=== PATIENT | female | born 1990 | race Caucasian/White ===

== ENCOUNTER 2019-04-24 19:39 | Emergency (ER) | payer OTHER ==
[~2019-04-24] VITALS: Ht 157.5 cm; Wt 67.7 kg
[~2019-04-24 19:39] MED LIST: ACET500C5 PO; FERR134T PO; FOLI0.4T2 PO; PREN-19 PO
[2019-04-24 19:44] VITALS: Ht 157.5 cm; Wt 67.7 kg
[2019-04-24 20:36] VITALS: BP 118/71; PULSE 98; RESP 20
== END 2019-04-24 20:59 | disposition home or self-care (01) ==
LOC: FTE 19:39
DX: Z34.93 Encounter for supervision of normal pregnancy, unspecified, third trimester (principal); Z3A.39 39 weeks gestation of pregnancy
CPT/HCPCS: 99282

== ENCOUNTER 2019-04-24 20:53 | Outpatient (CLI) | payer OTHER ==
[~2019-04-24] VITALS: Ht 157.5 cm; Wt 67.6 kg
[2019-04-24 22:06] VITALS: BP 123/73; PULSE 89; RESP 15
== END 2019-04-25 02:00 | disposition home or self-care (01) ==
LOC: OBT 20:53 → L-D 20:54 → OBT 04-25 02:00
PROVIDERS: ATTEND Specialist
DX: O9A.213 Injury, poisoning and certain other consequences of external causes complicating pregnancy, third trimester (principal); Z3A.39 39 weeks gestation of pregnancy
CPT/HCPCS: 76818; Z7500; G0463

== ENCOUNTER 2019-04-26 10:22 | Inpatient (IN) | payer OTHER ==
[~2019-04-26] VITALS: Ht 157.5 cm; Wt 66.7 kg
[~2019-04-26 10:22] MED LIST changes: -ACET500C5 PO
[2019-04-26 10:43] VITALS: BP 117/70; PULSE 73; RESP 18; Ht 157.5 cm; Wt 66.7 kg
[2019-04-26] MEDS ORDERED: LIDOCAINE 1% (MPF) 30 ML INJ INJ PRN (11:30)
[2019-04-26] MEDS ORDERED: IBUPROFEN 600 MG TAB PO PRN (11:30)
[2019-04-26] MEDS ORDERED: METHYLERGONOVINE 0.2 MG INJ IM PRN (11:30)
[2019-04-26] MEDS ORDERED: OXYTOCIN 30 UNITS/LR 500 ML IV PRN (11:30)
[2019-04-26] MEDS ORDERED: CARBOPROST 250 MCG INJ IM PRN (11:30)
[2019-04-26] MEDS ORDERED: MISOPROSTOL 200 MCG TAB PR PRN (11:30)
[2019-04-26] MEDS ORDERED: OXYTOCIN 30 UNITS/LR 500 ML IV SCH ×3 (11:30)
[2019-04-26] MEDS ORDERED: OXYCODONE/ASPIRIN (4.88/325) TAB PO PRN (11:30)
[2019-04-26] MEDS: LACTATED RINGER'S 1,000 ML IV SCH ×2 (11:33→19:32)
[2019-04-26] MEDS ORDERED: BUTORPHANOL 2 MG INJ IV PRN ×2 (22:00)
[2019-04-27] MEDS ORDERED: NALOXONE (0.4 MG/ML) INJ IV PRN
[2019-04-27] MEDS ORDERED: TRIMETHOBENZAMIDE 100 MG/ML VIAL IM PRN
[2019-04-27] MEDS ORDERED: ONDANSETRON 4 MG INJ IV PRN
[2019-04-27] MEDS ORDERED: DIPHENHYDRAMINE 50 MG INJ IV PRN
[2019-04-27] MEDS ORDERED: FENTAnyl 2MCG/ML-ROPIV 0.2% 100 ML ONE (00:11)
[2019-04-27] MEDS: LACTATED RINGER'S 1,000 ML IV SCH ×4 (00:43→22:05)
[2019-04-27] MEDS: FENTAnyl 2MCG/ML-ROPIV 0.2% 100 ML BAG EPI SCH ×2 (09:14→17:45)
[2019-04-27] MEDS: GENTAMICIN 90 MG in SOD CHLORIDE 0.9% 100 ML IV SCH ×2 (10:51→18:03)
[2019-04-27] MEDS: AMPICILLIN 1 GM/NS (PMX) 50 ML IVPB SCH ×4 (12:14→21:17)
[2019-04-28] MEDS ORDERED: DIBUCAINE 1% 30 GM OINT TOP PRN (00:30)
[2019-04-28] MEDS ORDERED: MISOPROSTOL 200 MCG TAB PR PRN (00:30)
[2019-04-28] MEDS ORDERED: MAGNESIUM HYDROXIDE 30ML CUP PO PRN (00:30)
[2019-04-28] MEDS ORDERED: LANOLIN HPA 1 PKT TOP PRN (00:30)
[2019-04-28] MEDS ORDERED: ONDANSETRON 4 MG INJ IV PRN (00:30)
[2019-04-28] MEDS ORDERED: OXYTOCIN 30 UNITS/LR 500 ML IV PRN (00:30)
[2019-04-28] MEDS ORDERED: NA PHOSPHATE/BIPHOS 133 ML ENEMA PR PRN (00:30)
[2019-04-28] MEDS ORDERED: CARBOPROST 250 MCG INJ IM PRN (00:30)
[2019-04-28] MEDS ORDERED: BENZOCAINE 20% 56 ML SPRAY TOP PRN (00:30)
[2019-04-28] MEDS ORDERED: DIPHENHYDRAMINE 50 MG INJ IV PRN (00:30)
[2019-04-28] MEDS ORDERED: SENNA/DOCUSATE NA (8.6MG/50MG) TAB PO PRN (00:30)
[2019-04-28] MEDS ORDERED: WITCH HAZEL/GLYCERIN PAD PR PRN (00:30)
[2019-04-28] MEDS ORDERED: HYDROCODONE/APAP (5/325) TAB PO PRN ×2 (00:30)
[2019-04-28] MEDS ORDERED: ONDANSETRON 4 MG TAB PO PRN (00:30)
[2019-04-28] MEDS ORDERED: DIPHENHYDRAMINE 25 MG CAP PO PRN (00:30)
[2019-04-28 02:10] VITALS: BP 112/58; PULSE 67; RESP 18
[2019-04-28] MEDS: AMPICILLIN 1 GM/NS (PMX) 50 ML IVPB SCH ×6 (03:16→22:54)
[2019-04-28] MEDS: GENTAMICIN 90 MG in SOD CHLORIDE 0.9% 100 ML IV SCH ×3 (04:33→17:56)
[2019-04-28 05:56] VITALS: BP 108/57; PULSE 68; RESP 19
[2019-04-28] MEDS: IBUPROFEN 600 MG TAB PO SCH ×3 (06:13→17:56)
[2019-04-28] MEDS: LACTATED RINGER'S 1,000 ML IV* SCH ×3 (06:45→16:06)
[2019-04-28 08:30] VITALS: BP 89/57; RESP 18
[2019-04-28] MEDS: SENNA/DOCUSATE NA (8.6MG/50MG) TAB PO SCH ×2 (09:07→21:11)
[2019-04-28] MEDS: LACTATED RINGER'S 1,000 ML IV SCH ×2 (12:18→22:57)
[2019-04-28 18:01] VITALS: BP 98/56; PULSE 77; RESP 18
[2019-04-28 19:40] VITALS: BP 116/72; PULSE 83; RESP 20
[2019-04-29] VITALS: BP 110/72; PULSE 76; RESP 18
[2019-04-29] MEDS: LACTATED RINGER'S 1,000 ML IV* SCH ×2 (00:06→08:06)
[2019-04-29] MEDS: IBUPROFEN 600 MG TAB PO SCH ×5 (00:27→23:35)
[2019-04-29] MEDS: GENTAMICIN 90 MG in SOD CHLORIDE 0.9% 100 ML IV SCH ×2 (01:52→10:52)
[2019-04-29] MEDS: AMPICILLIN 1 GM/NS (PMX) 50 ML IVPB SCH ×4 (02:59→13:09)
[2019-04-29] MEDS: LACTATED RINGER'S 1,000 ML IV SCH (03:09)
[2019-04-29 04:10] VITALS: BP 100/52; PULSE 65; RESP 18
[2019-04-29 08:00] VITALS: BP 108/59; PULSE 68; RESP 16
[2019-04-29] MEDS: SENNA/DOCUSATE NA (8.6MG/50MG) TAB PO SCH ×2 (10:03→22:21)
[2019-04-29 15:48] VITALS: BP_SYST 104; BP_SYST 127; BP_DIAS 55; BP_DIAS 73; PULSE 70; PULSE 84; RESP 18
[2019-04-29 20:00] VITALS: BP 105/59; PULSE 87; RESP 18
[2019-04-30 03:30] VITALS: BP 95/54; PULSE 80; RESP 18
[2019-04-30] MEDS: IBUPROFEN 600 MG TAB PO SCH ×2 (05:45→12:20)
[2019-04-30 08:00] VITALS: BP 108/53; PULSE 73; RESP 18
[2019-04-30] MEDS ORDERED: DIPHTH/TET/ACEL PERTUSS (ADULT) 0.5 ML VIAL IM* ONE (09:00)
[2019-04-30] MEDS ORDERED: VARICELLA VACCINE LIVE/PF 1,350 UNIT/0.5 ML ML SC* ONE (09:00)
[2019-04-30] MEDS ORDERED: MEASLES,MUMPS,RUBELLA VACCINE INJ SC* ONE (09:00)
[2019-04-30] MEDS: SENNA/DOCUSATE NA (8.6MG/50MG) TAB PO SCH (09:23)
== END 2019-04-30 16:01 | disposition home or self-care (01) | DRG 806 ==
LOC: OBT 10:22 → L-D 10:22 → OBT 11:00 → L-D 11:14 → PP1 04-28 02:06
PROVIDERS: ADMIT Specialist; ATTEND Specialist
PROC: 10E0XZZ Delivery of Products of Conception, External Approach (ICD-10-PCS; principal; 2019-04-28)
PROC: 0HQ9XZZ Repair Perineum Skin, External Approach (ICD-10-PCS; 2019-04-28)
DX: O69.81X0 Labor and delivery complicated by cord around neck, without compression, not applicable or unspecified (principal); O71.4 Obstetric high vaginal laceration alone; Z37.0 Single live birth; Z3A.39 39 weeks gestation of pregnancy
CPT/HCPCS: 62322; 85025; 85610; 85730; 86592; 86850; 86900; 86901; 87340; 88307; 90716; 99464; G0463; J0290; J0595; J1580; J2405; J2590; J3010; J7120